=== PATIENT | female | born 1940 | race Caucasian/White ===

== ENCOUNTER 2017-11-14 23:41 | Inpatient (IN) | payer OTHER ==
[~2017-11-14] VITALS: Ht 157.5 cm; Wt 46.8 kg
[2017-11-14 23:57] VITALS: Ht 157.5 cm; Wt 46.8 kg
[2017-11-15 01:20] LABS: BASOPHIL % 0.1 % (0-2); PLATELET COUNT 375 x10^3mcL (130-400); RED CELL DISTRIBUTION WIDTH 13.8 % (11.5-14.5)
[2017-11-15 01:23] LABS: CALCIUM 8.8 mg/dL (8.5-10.1); CARBON DIOXIDE 29.4 mmol/L (21-32); CHLORIDE SERUM 91 mmol/L (98-107); CREATININE SERUM 0.9 mg/dL (0.6-1.0); GLUCOSE SERUM 100 mg/dL (74-106); POTASSIUM SERUM 3.5 mmol/L (3.5-5.1); SODIUM SERUM 127 mmol/L (136-145)
[2017-11-15 01:36] LABS: ALKALINE PHOSPHATASE 99 U/L (46-116); ALT/SGPT 18 U/L (14-59); AST/SGOT 26 U/L (15-37); BILIRUBIN TOTAL 0.41 mg/dL (0.20-1.00); FREE T4 1.65 ng/dL (0.76-1.46); TOTAL PROTEIN, SERUM 6.5 g/dL (6.4-8.2)
[2017-11-15 01:53] LABS: ALBUMIN 3.1 g/dL (3.4-5.0)
[2017-11-15 03:50] LABS: RED BLOOD CELLS 3.8 M/mm3 (4.10-5.10)
[2017-11-15 04:10] VITALS: BP 105/58
[2017-11-15] MEDS ORDERED: VIS25 PO (04:14)
[2017-11-15] MEDS ORDERED: REMERON45 MG (04:16)
[2017-11-15] MEDS ORDERED: ABILIFY5 M1 PO (04:17)
[2017-11-15] MEDS ORDERED: CYMBALTA30 M1 PO (04:18)
[2017-11-15 04:28] LABS: T3 TOTAL 0.84 ng/mL
[2017-11-15 04:31] LABS: CHOLESTEROL/HDL RATIO 2.9; MAGNESIUM 1.8 mg/dL (1.8-2.4); PHOSPHOROUS 3.3 mg/dL (2.5-4.9)
[2017-11-15 04:35] LABS: FREE T4 1.76 ng/dL (0.76-1.46); FREE THYROXINE INDEX 4.3 ug/dL (1.4-4.5); T4(THYROXINE) 10.5 ug/dL (4.7-13.3)
[2017-11-15 04:46] LABS: IRON 33 ug/dL (50-170); TOTAL IRON BINDING CAPACITY 229 ug/dL (250-450)
[2017-11-15 04:51] VITALS: BP 140/103
[2017-11-15] MEDS ORDERED: ZESTRIL5 MG PO (06:54)
[2017-11-15] MEDS ORDERED: SYNTHROID0.1 MG PO (06:55)
[2017-11-15] MEDS ORDERED: COLACE100 MG PO (06:56)
[2017-11-15 09:53] VITALS: BP 133/58
[2017-11-15 14:45] VITALS: BP 116/49
[2017-11-15 18:27] VITALS: BP 120/51
[2017-11-15 21:16] VITALS: BP 110/52
[2017-11-16 05:59] VITALS: BP 104/61
[2017-11-16 07:18] LABS: microscopic required? NO
[2017-11-16 07:45] LABS: BASOPHIL % 0.1 % (0-2); RED CELL DISTRIBUTION WIDTH 14.5 % (11.5-14.5)
[2017-11-16 07:54] LABS: urine erythrocyte NEGATIVE (NEGATIVE)
[2017-11-16 08:16] LABS: CALCIUM 8.5 mg/dL (8.5-10.1); CARBON DIOXIDE 22.9 mmol/L (21-32); CHLORIDE SERUM 96 mmol/L (98-107); CREATININE SERUM 0.8 mg/dL (0.6-1.0); GLUCOSE SERUM 117 mg/dL (74-106); MAGNESIUM 1.8 mg/dL (1.8-2.4); POTASSIUM SERUM 3.8 mmol/L (3.5-5.1); SODIUM SERUM 129 mmol/L (136-145)
[2017-11-16 08:17] LABS: PLATELET COUNT 410 x10^3mcL (130-400)
[2017-11-16 08:32] LABS: AMPHETAMINE QUAL UR NONE DETECTED (NEG <=1000)
[2017-11-16 08:48] VITALS: BP 129/64
[2017-11-16 10:12] VITALS: BP 135/78
[2017-11-16 12:42] VITALS: BP 136/60
[2017-11-16 13:43] VITALS: BP 136/60
[2017-11-16] MEDS ORDERED: MEDDP PO (14:05)
== END 2017-11-16 15:20 | disposition home or self-care (01) | DRG 191 ==
LOC: ED 23:41 → DU 11-15 03:02 → MU 11-16 12:57
PROVIDERS: Emergency Medicine; Family Medicine
DX: J44.1 Chronic obstructive pulmonary disease with (acute) exacerbation (principal); E44.0 Moderate protein-calorie malnutrition; E87.1 Hypo-osmolality and hyponatremia; F33.1 Major depressive disorder, recurrent, moderate; E05.80 Other thyrotoxicosis without thyrotoxic crisis or storm; T38.1X5A Adverse effect of thyroid hormones and substitutes, initial encounter; I10 Essential (primary) hypertension; D64.9 Anemia, unspecified; Y92.009 Unspecified place in unspecified non-institutional (private) residence as the place of occurrence of the external cause
CPT/HCPCS: 83880; 84439; 87804; 94150; J1630; J2060; J2920; J2930; J7030; J7620; J7633; Q0092